=== PATIENT | male | born 1950 | race Caucasian/White ===

== ENCOUNTER → 2016-10-20 | Outpatient (CLI) | payer BC | LOC: EMI 09:53 | DX: M54.5 Low back pain (principal); G89.29 Other chronic pain; M48.06 Spinal stenosis, lumbar region; Z98.890 Other specified postprocedural states; M99.73 Connective tissue and disc stenosis of intervertebral foramina of lumbar region | CPT/HCPCS: 72158; A9577; J7050 ==